=== PATIENT | female | born 1980 | race American Indian/Alaskan Native ===

== ENCOUNTER 2020-10-06 02:58 | Emergency (ER) | payer SELFPAY ==
[2020-10-06 05:33] VITALS: BP 144/93
[2020-10-06] MEDS ORDERED: dexAMETHasone 20 MG/5 ML VIAL IM ONE (05:50)
[2020-10-06] MEDS ORDERED: hydrOXYzine PAMOATE 25 MG CAP PO ONE (05:51)
[2020-10-06] MEDS ORDERED: FAMOTIDINE 20 MG TAB PO ONE (05:52)
--- NOTE | 2020-10-06 07:29 | Emergency Department Report ---
HPI - General Chief Complaint: Allergic Reaction Time Seen by Provider: 10/06/20 07:23 - HPI HPI: 40-year-old female with a history of environmental allergies states that she was walking her dog yesterday around 7 PM when she returned home she started itching with hives her tongue felt itchy she took Benadryl with no relief. Upon my evaluation patient had already received Pepcid Vistaril and dexamethasone 10 mg. She reports feeling much better the itchy symptoms are gone. She denies any shortness of breath difficulty swallowing or chest pain. ED Past Medical Hx - Past Medical History Previous Medical History?: Yes Hx Diabetes: Yes Hx Asthma: Yes Additional medical history: Environmental Allergies. Obesity - Surgical History Past Surgical History?: Yes Hx Cholecystectomy: Yes Additional Surgical History: Tubal Ligation - Social History Smoking Status: Never Smoker Substance Use Type: None - Medications Home Medications: Home Medications Medication Instructions Recorded Confirmed Last Taken Type Famotidine [Pepcid] 20 mg PO DAILY 4 Days #4 tablet 10/06/20 Unknown Rx predniSONE [Deltasone] 20 mg PO QDAY 4 Days #4 tab 10/06/20 Unknown Rx ED Review of Systems ROS: Stated complaint: ALLERGIC REACTION Other details as noted in HPI Comment: All other systems reviewed and negative Constitutional: denies: chills, fever, weakness Eyes: denies: eye pain, eye discharge, vision change ENT: denies: congestion Respiratory: denies: cough, shortness of breath, wheezing Cardiovascular: denies: chest pain, palpitations, dyspnea on exertion, edema, syncope, paroxysmal nocturnal dyspnea Endocrine: no symptoms reported Gastrointestinal: denies: abdominal pain, nausea, vomiting, constipation, hematemesis, hematochezia, other Skin: rash (hives ), pruritus Neurological: denies: headache, weakness Physical Exam - Physical Exam Vital Signs: Vital Signs 10/06/20 05:29 Temperature 98.3 F Pulse Rate 94 H Respiratory 18 Rate Blood Pressure 144/93 O2 Sat by Pulse 100 Oximetry General: Awake alert and oriented x3 in no acute distress Physical Exam: respirations easy and unlabored. Lungs with clear breath sounds. No wheezing auscultated. S1-S2 regular. A few hives noted to the posterior neck. No other rashes seen. No tongue swelling no postpharyngeal edema. Patient in no distress ED Course Vital Signs 10/06/20 05:29 Temperature 98.3 F Pulse Rate 94 H Respiratory 18 Rate Blood Pressure 144/93 O2 Sat by Pulse 100 Oximetry - Reevaluation(s) Reevaluation #1: 10/06/20 07:29 Condition improved upon my examination decrease itching ED Medical Decision Making - Medical Decision Making 40-year-old female with a history of environmental allergies she was out walking her dog yesterday, upon returning home she developed an itchy tongue and a rash to her arms and neck she took Benadryl with no relief. She presents to the emergency room this morning with ongoing itching and hives. Patient received steroid injection Pepcid and Vistaril which diminished her symptoms. Her lungs are clear she is in no distress. - Differential Diagnosis Allergic reaction Critical Care Time: No Critical care attestation.: If time is entered above; I have spent that time in minutes in the direct care of this critically ill patient, excluding procedure time. ED Disposition Clinical Impression: Allergic reaction Qualifiers: Encounter type: initial encounter Qualified Code(s): T78.40XA - Allergy, unspecified, initial encounter Disposition: DC-01 TO HOME OR SELFCARE Is pt being admited?: No Does the pt Need Aspirin: No Condition: Stable Instructions: Allergies, Adult, [id number] Additional Instructions: Take Benadryl 1 to 2 tablets every 4 hours as needed for itching. Take Pepcid daily as prescribed take prednisone daily as prescribed. Return to the emergency room for any difficulty breathing difficulty swallowing or increased rash. Otherwise follow-up with your primary care doctor in 3 to 5 days Prescriptions: predniSONE [Deltasone] 20 mg PO QDAY 4 Days #4 tab Famotidine [Pepcid] 20 mg PO DAILY 4 Days #4 tablet Referrals: DR CLARI [Other] - 3-5 Days Forms: Work/School Release Form(ED) Time of Disposition: 07:35
== END 2020-10-06 07:53 | disposition home or self-care (01) ==
LOC: ED 02:58
DX: T78.40XA Allergy, unspecified, initial encounter (principal); I10 Essential (primary) hypertension; E11.9 Type 2 diabetes mellitus without complications; J45.909 Unspecified asthma, uncomplicated; Z90.49 Acquired absence of other specified parts of digestive tract; Z98.51 Tubal ligation status; Z79.899 Other long term (current) drug therapy; X58.XXXA Exposure to other specified factors, initial encounter
CPT/HCPCS: 96372; 99282; J1100; Q0177